=== PATIENT | male | born 1995 | race Caucasian/White ===

== ENCOUNTER 2021-07-09 00:24 | Emergency (ER) | payer SELFPAY ==
[2021-07-09 00:25] VITALS: BP 144/77; PULSE 90; RESP 18; TEMP 36; O2SAT 97; BMI 27.8
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
[2021-07-09 01:14] VITALS: BP 123/83; PULSE 70; RESP 16; O2SAT 98
[2021-07-09] MEDS: Ibuprofen 600 MG Tablet PO (01:16)
== END 2021-07-09 01:21 | disposition home or self-care (01) ==
LOC: ED 00:55
PROVIDERS: Emergency Provider Emergency Medicine
DX: S02.2XXA Fracture of nasal bones, initial encounter for closed fracture (principal); S01.21XA Laceration without foreign body of nose, initial encounter; Y00.XXXA Assault by blunt object, initial encounter; Y92.89 Other specified places as the place of occurrence of the external cause; Z87.891 Personal history of nicotine dependence
CPT/HCPCS: 99284